=== PATIENT | male | born 1985 | race Caucasian/White ===

== ENCOUNTER 2023-09-19 09:46 | Emergency (ER) | payer OTHER ==
[~2023-09-19] VITALS: Ht 170.2 cm; Wt 94.6 kg
[2023-09-19 12:04] VITALS: BP 135/96; PULSE 72; RESP 18; TEMP 97.7; O2SAT 97
== END 2023-09-19 12:06 | disposition home or self-care (01) ==
LOC: ER 09:47
DX: R07.81 Pleurodynia (principal); R05.9 Cough, unspecified; F17.200 Nicotine dependence, unspecified, uncomplicated; Z79.899 Other long term (current) drug therapy
CPT/HCPCS: 71045; 93005; 99283

== ENCOUNTER 2024-12-23 13:40 | Emergency (ER) | payer MEDICAID, OTHER ==
[~2024-12-23] VITALS: Ht 170.2 cm; Wt 98.3 kg
[2024-12-23 13:52] VITALS: BP 141/101; PULSE 122; TEMP 97.5; O2SAT 97
[2024-12-23 14:19] LABS: BASOPHILS # (AUTO) 0.1 X10'3 (0-0.2); BASOPHILS % (AUTO) 0.4 % (0-1); EOSINOPHILS % (AUTO) 0.1 % (0-6); HEMATOCRIT 43.8 % (42.0-52.0); HEMOGLOBIN 15.2 g/dl (14.0-17.9); LYMPHOCYTES # (AUTO) 1.5 X10'3 (1.1-4.8); LYMPHOCYTES % (AUTO) 11.1 % (21-51); MEAN CORPUSCULAR HEMOGLOBIN 32.1 PG (27.0-31.0); MEAN CORPUSCULAR HGB CONC 34.8 g/dL (33.0-36.5); MEAN CORPUSCULAR VOLUME 92.3 FL (78-98); MEAN PLATELET VOLUME 7.2 FL (7.4-10.4); MONOCYTES # (AUTO) 1.2 X10'3 (0-0.9); MONOCYTES % (AUTO) 8.8 % (2-12); NEUTROPHILS # (AUTO) 10.7 X10'3 (1.8-7.7); NEUTROPHILS % (AUTO) 79.6 % (42-75); PLATELET COUNT 250 X10'3 (140-440); RED BLOOD COUNT 4.75 X10'6 (4.70-6.10); RED CELL DISTRIBUTION WIDTH 13.1 % (11.5-14.5); WHITE BLOOD COUNT 13.5 X10'3 (4.5-11.0)
[2024-12-23 14:26] LABS: ALBUMIN 4.3 G/DL (3.4-5.0); ANION GAP 12 (8-16); BLOOD UREA NITROGEN 29 MG/DL (7-18); BUN/CREATININE RATIO 25.2 (10.0-20.0); CHLORIDE 104 MMOL/L (99-107); CREATININE 1.15 MG/DL (0.60-1.10); GLUCOSE 120 MG/DL (70-104); POTASSIUM 4.1 MMOL/L (3.5-5.1); SODIUM 139 MMOL/L (135-145); eCRCL 81 ML/MIN; eGFR 71 ML/MIN
[2024-12-23] MEDS ORDERED: ketorolac trometh 30MG/ML vial 30 MG/ML VIAL IM ONE (16:05)
[2024-12-23] MEDS: TETanus/Pertussis (Acell)/Diphther VAC/PF (Tdap-Adult) 0.5ml syringe IMVAC ONE (16:05)
[2024-12-23] MEDS: LIDOcaine 1% 30ml preserv. free vial IJ ONE (16:05)
[2024-12-23 16:26] VITALS: RESP 16
[2024-12-23] MEDS: ketorolac trometh 15mg/ml vial 15 MG/ML ML IM ONE (16:26)
[2024-12-23] MEDS ORDERED: CEPH-585 PO (17:46)
[2024-12-23] MEDS ORDERED: SULF1TAB49 PO (17:46)
[2024-12-23] MEDS ORDERED: HYDR-3965 PO (17:46)
== END 2024-12-23 18:24 | disposition home or self-care (01) ==
LOC: ER 13:41
DX: L03.012 Cellulitis of left finger (principal); F17.200 Nicotine dependence, unspecified, uncomplicated; Z79.899 Other long term (current) drug therapy
CPT/HCPCS: 26010; 36415; 73130; 80048; 83605; 84145; 85025; 87040; 96372; 99284; J1885; A6449